=== PATIENT | male | born 1975 | race Two or more races ===

== ENCOUNTER 2018-03-08 01:01 | Emergency (ER) | payer OTHER ==
[~2018-03-08] VITALS: Ht 182.9 cm; Wt 103.4 kg
[2018-03-08] MEDS ORDERED: KETO10TA2 PO (04:39)
== END 2018-03-08 04:49 | disposition home or self-care (01) ==
LOC: ER 01:01
DX: S40.012A Contusion of left shoulder, initial encounter (principal); S40.011A Contusion of right shoulder, initial encounter; V49.9XXA Car occupant (driver) (passenger) injured in unspecified traffic accident, initial encounter; Y93.89 Activity, other specified; Y92.488 Other paved roadways as the place of occurrence of the external cause; Y99.8 Other external cause status

== ENCOUNTER 2018-12-01 07:40 | Emergency (ER) | payer OTHER ==
[~2018-12-01] VITALS: Ht 182.9 cm; Wt 105.2 kg
[~2018-12-01 07:40] MED LIST: KETO10TA2 PO
[2018-12-01] MEDS ORDERED: KETO10TA2 PO (10:59)
[2018-12-01] MEDS ORDERED: ORPHENADRINE C100 MG PO (10:59)
== END 2018-12-01 11:17 | disposition home or self-care (01) ==
LOC: ER 07:40
DX: S33.5XXA Sprain of ligaments of lumbar spine, initial encounter (principal); W01.0XXA Fall on same level from slipping, tripping and stumbling without subsequent striking against object, initial encounter; Y93.89 Activity, other specified; Y92.89 Other specified places as the place of occurrence of the external cause; Y99.8 Other external cause status

== ENCOUNTER 2019-03-31 05:05 | Day surgery (SDC) | payer OTHER ==
[~2019-03-31 05:05] MED LIST changes: +ORPHENADRINE C100 MG PO
[2019-03-31] MEDS ORDERED: PERCOCET 5-3251 EACH PO (07:59)
[2019-03-31] MEDS ORDERED: DICLOFENAC SODI75 MG PO (08:00)
[2019-03-31] MEDS ORDERED: RECTICARE30 GM TOP (08:01)
== END 2019-03-31 14:25 | disposition home or self-care (01) ==
LOC: CIR.AMB 05:05 → ADM 10:00 → CIR.AMB 10:00
DX: K60.3 Anal fistula (principal)

== ENCOUNTER 2021-09-05 06:21 | Emergency (ER) | payer OTHER ==
[~2021-09-05] VITALS: Ht 182.9 cm; Wt 106.6 kg
[~2021-09-05 06:21] MED LIST changes: +DICLOFENAC SODI75 MG PO; +PERCOCET 5-3251 EACH PO; +RECTICARE30 GM TOP
== END 2021-09-05 17:30 | disposition home or self-care (01) ==
LOC: ER 06:21
DX: M54.50 Low back pain, unspecified (principal)